=== PATIENT | female | born 1970 | race Caucasian/White ===

== ENCOUNTER 2023-07-12 00:13 | Emergency (ER) | payer OTHER ==
[2023-07-12 00:45] VITALS: TEMP 98
--- NOTE | 2023-07-12 01:02 | ERPHSYRPT ---
- History of Present Illness Time Seen by Provider: 07/12/23 00:40 Source: patient Exam Limitations: clinical condition Patient Subjective Stated Complaint: pt states she has had intermittent headache since monday night. tonight began after mowing and has not been relieved with medications at home. starts in rt neck and goes up rt side of head. Triage Nursing Assessment: pt alert and oriented, answers questions approp. pt ambulates room with steady gait noted. respirations nonlabored. skin warm and dry. pupils equal and reactive. Timing/Duration: today Severity: mild Modifying Factors: Improves With: nothing Allergies/Adverse Reactions: Penicillins Allergy (Unknown, Verified 07/12/23 01:07) Home Medications: Bupropion HCl 150 mg Sr [Wellbutrin SR 150 MG] 150 mg PO DAILY 07/12/23 [History] Dextroamphetamine/Amphetamine [Adderall Xr 30 mg Capsule] 30 mg PO DAILY 07/12/23 [History] Fluoxetine HCl [Prozac] 40 mg PO BID 07/12/23 [History] Rimegepant Sulfate [Nurtec Odt] 75 mg PO BID PRN PRN 07/12/23 [History] Rizatriptan Benzoate [Maxalt Dowel Setting Machine Operator] 10 mg PO BID PRN PRN 07/12/23 [History] Tizanidine HCl 4 mg [Zanaflex 4 MG] 4 mg PO HS 07/12/23 [History] Trazodone HCl 100 mg PO HS 07/12/23 [History] Hx Tetanus, Diphtheria Vaccination/Date Given: Yes Hx Influenza Vaccination/Date Given: Yes Hx Pneumococcal Vaccination/Date Given: Yes Immunizations Up to Date: Yes Travel Risk - International Travel Have you traveled outside of the country in past 3 weeks: No - Emerging Infectious Disease Are you exhibiting symptoms associated with any current EIDs: No - Review of Systems Eyes: No Symptoms Ears, Nose, & Throat: No Symptoms Respiratory: No Symptoms Cardiac: No Symptoms Abdominal/Gastrointestinal: No Symptoms Genitourinary Symptoms: No Symptoms Musculoskeletal: No Symptoms Skin: No Symptoms Neurological: Headache Psychological: No Symptoms - Past Medical History Neurological History: Migraines Cardiac History: Arrhythmia Psycho-Social History: Attention Deficit Disorder Other Medical History: neuralgia in neck, ftmj,. ocd, adhd, precanceroud moles removed - Past Surgical History Past Surgical History: Yes Gastrointestinal: Appendectomy, Cholecystectomy Female Surgical History: Section Other Surgical History: bilat labral repairs to hips, sinus surgery, nerve ablation - Female History Hx Last Menstrual Period: ablation Hx Now: No - Social History Smoking Status: Never smoker Exposure to second hand smoke: No Drug Use: none - Social Determinants of Health Will the patient participate in the screening: Declined to provide - Nursing Vital Signs Nursing Vital Signs: Initial Vital Signs Temperature 98 F 07/12/23 00:23 Pulse Rate 96 H 07/12/23 00:23 Respiratory Rate 16 07/12/23 00:23 Blood Pressure 151/99 07/12/23 00:23 O2 Sat by Pulse Oximetry 96 07/12/23 00:23 Pain Scale Pain Intensity 3 - Physical Exam General Appearance: no apparent distress Eye Exam: PERRL/EOMI Ears, Nose, Throat Exam: normal ENT inspection Neck Exam: normal inspection Respiratory Exam: normal breath sounds Cardiovascular Exam: regular rate/rhythm Gastrointestinal/Abdomen Exam: soft, normal bowel sounds Neurologic Exam: alert, oriented x 3, cooperative SpO2: 96 Ordered Tests: Active Orders 24 hr Category Date Time Status CERVICAL SPINE WO CONTRAST [CT] Stat Exams 07/12/23 01:43 Completed HEAD WITHOUT CONTRAST [CT] Stat Exams 07/12/23 01:43 Completed Medication Summary Discontinued Medications Generic Name Dose Route Start Last Admin Trade Name Senq PRN Reason Stop Dose Admin Diphenhydramine HCl 50 mg 07/12/23 00:58 07/12/23 01:28 Diphenhydramine Hcl 50 Mg/Ml Vial IV 07/12/23 00:59 50 mg STAT ONE Administration Diphenhydramine HCl Confirm 07/12/23 01:18 Diphenhydramine Hcl 50 Mg/Ml Vial Administered 07/12/23 01:19 Dose 50 mg .ROUTE .STK-MED ONE Sodium Chloride 1,000 mls @ 999 mls/hr 07/12/23 00:59 07/12/23 01:25 Sodium Chloride 0.9% 1000 Ml IV 07/12/23 01:59 999 mls/hr .Q1H1M STA Administration Sodium Chloride Confirm 07/12/23 01:19 Sodium Chloride 0.9% 1000 Ml Administered 07/12/23 01:20 Dose 1,000 mls @ ud .ROUTE .STK-MED ONE Ketorolac Tromethamine 30 mg 07/12/23 00:58 07/12/23 01:26 Ketorolac Tromethamine 30 Mg/Ml Inj IV 07/12/23 00:59 30 mg STAT ONE Administration Ketorolac Tromethamine Confirm 07/12/23 01:18 Ketorolac Tromethamine 30 Mg/Ml Inj Administered 07/12/23 01:19 Dose 30 mg .ROUTE .STK-MED ONE Prochlorperazine Edisylate 10 mg 07/12/23 00:58 07/12/23 01:30 Prochlorperazine Edisylate 10 Mg/2 Ml Vial IV 07/12/23 00:59 10 mg STAT ONE Administration Prochlorperazine Edisylate Confirm 07/12/23 01:19 Prochlorperazine Edisylate 10 Mg/2 Ml Vial Administered 07/12/23 01:20 Dose 10 mg .ROUTE .STK-MED ONE - Progress Progress Note: . patient was seen and evaluated for migraine headache she was given Toradol Benadryl and Compazine with IV fluids and CT of the head and cervical spine were obtained these reveal no acute findings patient was updated with the results she feels better and wants to go home. She was informed of the need to follow- up with a primary care provider and return to the ER if she were to get worse 07/12/23 03:43 Medical Desision Making - Discussion of managment Agreed on:: need for follow-up - Departure Clinical Impression: Migraine headache Condition: Good Critical Care Time: No Referrals: SUGEY VALENCIA NP [Primary Care Provider] - Follow up/PCP as directed Prescriptions: Chlorzoxazone 500 mg PO BID #20 tablet
[2023-07-12] MEDS ORDERED: BENADRYL 50 MG/ML ONE (01:18)
[2023-07-12] MEDS ORDERED: TORAdol 30 mg Injection ONE (01:18)
[2023-07-12] MEDS ORDERED: Sodium Chloride 0.9% 1000 ML 1,000 ML ONE (01:19)
[2023-07-12] MEDS ORDERED: Compazine 10 MG/2 ML ONE (01:19)
[2023-07-12] MEDS: Sodium Chloride 0.9% 1000 ML 1,000 ML IV STA (01:25)
[2023-07-12] MEDS: TORAdol 30 mg Injection IV ONE (01:26)
[2023-07-12] MEDS: BENADRYL 50 MG/ML IV ONE (01:28)
[2023-07-12] MEDS: Compazine 10 MG/2 ML IV ONE (01:30)
--- NOTE | 2023-07-12 03:26 | XRAY ---
CLINICAL HISTORY: headache COMPARISON: None. TECHNIQUE: An axial non-contrast CT scan of the brain was performed from the skull base to the high parietal region.?one of the following dose reduction techniques were utilized for this exam: Automated exposure control, adjustment of the mA and/or kV according to patient size, use of iterative reconstruction?. FINDINGS: No territorial infarctions, intracerebral hematomas, or extra-axial collections. The visualized brain parenchyma shows a normal appearance. No focal parenchymal abnormalities are demonstrated. [place]-white matter differentiation is maintained. No midline shifts or deformity. Normal size and configuration of the cerebral ventricles. Normal CT appearance of the posterior fossa structures namely the cerebellar hemispheres, brainstem, and cerebellar peduncles. No definite calvarium fractures. Scanned paranasal sinuses show right maxillary mucosal thickening with air-fluid level denoting acute sinusitis. IMPRESSION: 1. Unremarkable non-contrast CT study of the brain. 2. Right maxillary acute sinusitis with air-fluid level. Electronically Signed by: Cecily Benavidez MD. (07/12/2023 03:23:10 EDT)
--- NOTE | 2023-07-12 03:31 | XRAY ---
CLINICAL HISTORY: headache COMPARISON: None. TECHNIQUE: Thin axial CT of the cervical spine was performed with sagittal and coronal reconstructions without contrast. One of the following dose reduction techniques were utilized for this exam: Automated exposure control, adjustment of the mA and/or kV according to patient size, use of iterative reconstruction. FINDINGS: Straightened cervical curve, possibly muscle spasm. The vertebral bodies are normal in height. No lytic or sclerotic bone lesion. The craniovertebral measures are unremarkable. C7 vertebral body striations likely haemangioma. Normal discs height is noted. Level by Level analysis: C2-C3: No central canal or neuroforaminal stenosis. C3-C4: No central canal or neuroforaminal stenosis. C4-C5: No central canal or neuroforaminal stenosis. C5-C6: No central canal or neuroforaminal stenosis. C6-C7: No central canal or neuroforaminal stenosis. IMPRESSION: Straightened cervical curve, possibly muscle spasm. C7 vertebral body striations likely haemangioma. Otherwise, unremarkable CT study for the cervical region. Electronically Signed by: Cecily Benavidez MD. (07/12/2023 03:26:25 EDT)
[2023-07-12 04:10] VITALS: BP 100/69; PULSE 79; RESP 16; O2SAT 98
== END 2023-07-12 04:10 | disposition home or self-care (01) ==
LOC: ED 00:13
DX: G43.909 Migraine, unspecified, not intractable, without status migrainosus (principal); Z79.899 Other long term (current) drug therapy
CPT/HCPCS: 70450; 72125; 96374; 96375; 99284; J1200; J1885